=== PATIENT | female | born 1965 | race Two or more races ===

== ENCOUNTER 2017-05-29 15:01 | Emergency (ER) | payer MEDICAID ==
[~2017-05-29] VITALS: Ht 165.1 cm; Wt 86.2 kg
[~2017-05-29 15:01] MED LIST: AMIT50TA3 PO; ASPI81TA2 PO; ATEN50TA PO; CYCL-343 PO; HYDR50TA3 PO; LISI40TA4 PO; MELO-264 PO; SIMV20TA6 PO
[2017-05-29 15:09] VITALS: BP 162/95
== END 2017-05-29 15:26 | disposition home or self-care (01) ==
LOC: ER 15:03
DX: H10.10 Acute atopic conjunctivitis, unspecified eye (principal); I10 Essential (primary) hypertension; Z79.82 Long term (current) use of aspirin
CPT/HCPCS: A4606; Z7610

== ENCOUNTER 2017-07-04 19:47 | Emergency (ER) | payer MEDICAID ==
[~2017-07-04] VITALS: Ht 162.6 cm; Wt 72.6 kg
[2017-07-04 20:09] VITALS: BP 148/91
[2017-07-04 20:24] LABS: APPEARANCE,URINE Clear (CLEAR); BILIRUBIN,URINE Negative (NEGATIVE); BLOOD, URINE Moderate Ery/uL (NEGATIVE); COLOR,URINE Yellow (YELLOW); KETONES,URINE Negative (NEGATIVE); LEUKOCYTE ESTERASE ,URINE Small (NEGATIVE); NITRITE, URINE Negative (NEGATIVE); PROTEIN,URINE 30 mg/dl (NEGATIVE); UGLUCOSE Negative (NEGATIVE); UROBILINOGEN,URINE 0.2 EU/dL (0.2)
[2017-07-04] MEDS ORDERED: PHENAZOPYRIDINE HCL 200 MG TABLET ONE (20:26)
[2017-07-04] MEDS ORDERED: HYDROCODONE/APAP 10/325MG 1 EA TABLET ONE (20:26)
--- NOTE | 2017-07-04 20:29 | NUR ---
MEDICATED PATIENT ORDERED BY DR LINTON.
[2017-07-04] MEDS ORDERED: HYDROCODONE/APAP 10/325MG 1 EA TABLET PO ONE (20:30)
[2017-07-04] MEDS ORDERED: PHENAZOPYRIDINE HCL 200 MG TABLET PO ONE (20:30)
[2017-07-04 20:36] LABS: BACTERIA,URINE Many /HPF (None Seen); SQUAMOUS EPITHELIAL CELL,UR Few /HPF (None Seen); WBC,URINE TOO NUMEROUS TO COUN /HPF (0-3)
[2017-07-04] MEDS ORDERED: CIPROFLOXACIN HCL 500 MG TABLET ONE (20:59)
[2017-07-04] MEDS ORDERED: CIPROFLOXACIN HCL 500 MG TABLET PO ONE (21:00)
== END 2017-07-04 21:09 | disposition home or self-care (01) ==
LOC: ER 19:49
DX: N39.0 Urinary tract infection, site not specified (principal); I10 Essential (primary) hypertension; G43.909 Migraine, unspecified, not intractable, without status migrainosus; Z98.51 Tubal ligation status; Z79.82 Long term (current) use of aspirin
CPT/HCPCS: 81001; 87077; 87086; 87186; 99284; A4606; Z7610; 81000-TC

== ENCOUNTER 2018-09-05 16:43 | Emergency (ER) | payer MEDICAID ==
[~2018-09-05] VITALS: Ht 165.1 cm; Wt 87.5 kg
[~2018-09-05 16:43] MED LIST changes: +ASPI-1169 PO; -ASPI81TA2 PO; -CYCL-343 PO; +CYCL10TA9 PO; +MELO-107 PO; -MELO-264 PO
--- NOTE | 2018-09-05 16:55 | NUR ---
BIB DAUGHTER 53 YEAR OLD FEMALE C/O ABD PAIN RADIATING TO RT FLANK AREA X2 DAYS, +NAUSEA. ALERT AND ORIENTED X4, BREATHING EVEN AND UNLABORED WITH NO DISTRESS NOTED. SKIN WARM TO TOUCH AND INTACT. AWAITING TO BE SEEN BY MD.
[2018-09-05] MEDS ORDERED: ONDANSETRON HCL/PF 4 MG/2 ML VIAL ONE (17:11)
[2018-09-05] MEDS ORDERED: MORPHINE SULFATE INJ 4 MG/ML DISP.SYRIN ONE (17:11)
[2018-09-05 17:17] LABS: BASOPHILS % (AUTO) 0.5 % (0.0-2.0); EOSINOPHILS % (AUTO) 1.3 % (0.0-6.0); HEMATOCRIT 45 % (33-45); HEMOGLOBIN 15.2 g/dL (11.5-14.8); LYMPHOCYTES # (AUTO) 1.1 /CMM (0.8-4.8); MEAN CORPUSCULAR HGB CONC 34 g/dl (31.0-36.0); MEAN CORPUSCULAR VOLUME 91 fL (82-100); MONOCYTES # (AUTO) 0.3 /CMM (0.1-1.30); MONOCYTES % (AUTO) 6.4 % (2.0-12.0); NEUTROPHILS # (AUTO) 3.6 /CMM (1.8-8.9); NEUTROPHILS % (AUTO) 70.8 % (43.0-81.0); PLATELET COUNT (AUTO) 278 /CMM (150-450); RED BLOOD CELL COUNT(AUTO) 4.91 MIL/uL (4.0-5.2); WHITE BLOOD COUNT (AUTO) 5.1 K/uL (4.3-11.0)
[2018-09-05 17:17] LABS: BILIRUBIN,URINE Negative (NEGATIVE); BLOOD, URINE Negative Ery/uL (NEGATIVE); COLOR,URINE Yellow (YELLOW); KETONES,URINE Trace (NEGATIVE); LEUKOCYTE ESTERASE ,URINE Small (NEGATIVE); NITRITE, URINE Negative (NEGATIVE); PROTEIN,URINE Negative (NEGATIVE); UGLUCOSE Negative (NEGATIVE)
[2018-09-05 17:20] LABS: APPEARANCE,URINE SLIGHTLY HAZY (CLEAR)
[2018-09-05 17:25] LABS: BACTERIA,URINE Moderate /HPF (None Seen); SQUAMOUS EPITHELIAL CELL,UR Many /HPF (None Seen)
[2018-09-05 17:26] LABS: CREATININE 0.7 mg/dL (0.6-1.3); POTASSIUM 3.2 mmol/L (3.5-5.1)
[2018-09-05 17:27] LABS: RBC,URINE 0-2 /HPF (0-2)
[2018-09-05] MEDS ORDERED: MORPHINE SULFATE INJ 2 MG/ML DISP.SYRIN IV ONE (17:30)
[2018-09-05] MEDS ORDERED: ONDANSETRON HCL/PF 4 MG/2 ML VIAL IVP ONE (17:30)
[2018-09-05] MEDS ORDERED: IV NS 0.9% 1,000 ML BAG IV ONE (17:30)
[2018-09-05 17:31] LABS: ALBUMIN 3.8 g/dL (3.4-5.0); BILIRUBIN,DIRECT 0.1 mg/dL (0.0-0.2); BILIRUBIN,TOTAL 0.4 mg/dL (0.2-1.0); TOTAL PROTEIN, SERUM 7.7 g/dL (6.4-8.2)
[2018-09-05] MEDS ORDERED: CEFTRIAXONE 1GM BAG (ER ONLY) 50 ML IV ONE (17:47)
[2018-09-05] MEDS ORDERED: POTASSIUM CHLORIDE 10 MEQ TABLET.SA ONE (17:47)
[2018-09-05] MEDS ORDERED: POTASSIUM CHLORIDE 20 MEQ TAB.PRT.SR PO ONE (18:00)
[2018-09-05] MEDS ORDERED: CEFTRIAXONE 1GM BAG (ER ONLY) 1 GM/50 ML PIGGYBACK IV ONE (18:00)
[2018-09-05 18:12] VITALS: BP 122/70
--- NOTE | 2018-09-05 18:13 | NUR ---
Patient discharged to home in stable condition. Written and verbal after care instructions given. Patient verbalizes understanding of instruction. IV removed. Catheter intact and site benign. Pressure and 4x4 applied to site. No bleeding noted.
== END 2018-09-05 18:14 | disposition home or self-care (01) ==
LOC: ER 16:48
DX: N39.0 Urinary tract infection, site not specified (principal); E87.6 Hypokalemia; I10 Essential (primary) hypertension; E78.5 Hyperlipidemia, unspecified; G43.909 Migraine, unspecified, not intractable, without status migrainosus; Z98.51 Tubal ligation status; Z79.82 Long term (current) use of aspirin
CPT/HCPCS: 36415; 80048; 80076; 81001; 83690; 85025; 87086; 96365; 96375; 99283; A4606; J0696; J2270; J2405; J7030; Z7610; 81000-TC